=== PATIENT | female | born 1975 | race Caucasian/White ===

== ENCOUNTER 2020-01-06 07:38 | Day surgery (SDC) | payer OTHER ==
[~2020-01-06] VITALS: Ht 175.3 cm; Wt 57.0 kg
[~2020-01-06 07:38] MED LIST: LEVO1TAB30 PO
[2020-01-06] MEDS ORDERED: CHLORHEXIDINE 15 ML UDC MM STA (07:55)
[2020-01-06] MEDS ORDERED: MIDAZOLAM 1 MG/ML, 2ML ONE (07:58)
[2020-01-06] MEDS ORDERED: FENTANYL PF 250 MCG/5ML ONE (07:59)
[2020-01-06] MEDS ORDERED: FENTANYL PF 100 MCG/2ML IV PRN (08:00)
[2020-01-06] MEDS ORDERED: MEPERIDINE/PF 25MG/0.5ML IVPush PRN (08:00)
[2020-01-06] MEDS ORDERED: LACTATED RINGERS 1,000 ML IV SCH (08:00)
[2020-01-06] MEDS ORDERED: ACETAMINOPHEN 325 MG TABLET PO PRN (08:00)
[2020-01-06] MEDS ORDERED: LABETALOL 5MG/ML, 20ML IV PRN (08:00)
[2020-01-06] MEDS ORDERED: PROMETHAZINE 25 MG/ML, 1ML IVPush PRN (08:00)
[2020-01-06] MEDS ORDERED: hydrALAzine 20 MG/ML, 1ML IV PRN (08:00)
[2020-01-06] MEDS ORDERED: HYDROmorphone 1 MG/ML, 1ML INJ IVPush PRN (08:00)
[2020-01-06] MEDS ORDERED: ONDANSETRON 2MG/ML, 2ML IVPush PRN (08:00)
[2020-01-06] MEDS ORDERED: OXYcodone 5 MG/5 ML ORAL.SOL UDC PO PRN (08:00)
[2020-01-06 08:26] LABS: HCG UR SG 1.033 (1.003-1.030)
[2020-01-06] MEDS ORDERED: BUPIVACAINE/PF-EPI 0.25% 1:200K ONE (08:36)
[2020-01-06] MEDS ORDERED: ONDANSETRON 2MG/ML, 2ML ONE (09:03)
[2020-01-06] MEDS ORDERED: EPHEDRINE 50 MG/ML, 1ML ONE (09:03)
[2020-01-06] MEDS ORDERED: DEXAMETHASONE 4 MG/ML, 1ML ONE ×2 (09:03)
[2020-01-06] MEDS ORDERED: KETOROLAC 30 MG/1 ML ONE (09:03)
[2020-01-06] MEDS ORDERED: PROPOFOL 10 MG/ML, 20ML ONE (09:03)
[2020-01-06] MEDS ORDERED: NEOSPORIN OINT. PKT 1 PACKET ONE (09:34)
== END 2020-01-06 11:20 | disposition home or self-care (01) ==
LOC: OUT 07:38
PROVIDERS: ATTEND Obstetrics & Gynecology Gynecology
DX: N90.0 Mild vulvar dysplasia (principal); L82.0 Inflamed seborrheic keratosis; F41.9 Anxiety disorder, unspecified; Z79.899 Other long term (current) drug therapy; Z88.8 Allergy status to other drugs, medicaments and biological substances; Z80.3 Family history of malignant neoplasm of breast; Z83.3 Family history of diabetes mellitus; Z82.49 Family history of ischemic heart disease and other diseases of the circulatory system; Z80.8 Family history of malignant neoplasm of other organs or systems
CPT/HCPCS: 11423; 81025; 88309; J1100; J1885; J2250; J2405; J2704; J3010; J7120